=== PATIENT | female | born 1975 | race Caucasian/White ===

== ENCOUNTER 2019-11-29 21:26 | Emergency (ER) | payer MEDICAID, SELFPAY ==
[2019-11-29 21:42] VITALS: BP 147/90; PULSE 98; RESP 99; TEMP 37.4; O2SAT 99; BMI 25.0
--- NOTE | 2019-11-29 21:53 | CT_ITS ---
PROCEDURE: CT ABDOMEN PELVIS W CON CLINICAL INDICATION: RLQ pain Right lower quadrant pain with fever and diarrhea COMPARISON: No exams were available for comparison TECHNIQUE: IV Contrast: 75ML OPTIRAY 350 Oral Contrast None Axial images obtained with sagittal and coronal reformats. All CT scans at the facility use one or more dose reduction, viz: automated exposure control, ma/kV adjustment per patient size (including targeted exams where dose is matched to indication, i.e. head), or iterative reconstruction technique. FINDINGS: LOWER THORAX: No acute finding ABDOMEN & PELVIS: The liver, spleen, adrenal glands, pancreas, and kidneys have an unremarkable appearance. No intestinal obstruction or free air. No evidence of appendicitis. The uterus is enlarged with a isodense mass along the right aspect of the body of the uterus measuring 7 cm consistent with a fibroid. No abnormal fluid collections within the pelvis. No acute bony anomalies. IMPRESSION: 1. No acute finding. 2. Large uterine fibroid Dictated by: Rafal Bello MD 11/30/2019 08:52 Electronically signed by Rafal Blelo MD in [place] 11/30/2019 08:52
[2019-11-29 22:00] LABS: Microscopic, Urine URINE MICROSCOPIC (MICROSCOPIC)
[2019-11-29 22:05] LABS: Appearance,Urine CLEAR (Clear); Blood, Urine Negative (Negative); Color,Urine YELLOW (Yellow); Glucose,Urine (UA) Negative (Negative); Ketones,Urine Negative (Negative); Leukocyte Esterase,Urine Negative (Negative); Nitrate,Urine Negative (Negative); Protein,Urine Negative (Negative); Urobilinogen,Urine 0.2 EU/dl (0.2)
[2019-11-29 22:07] LABS: Urine Pregnancy, HCG Qual. Negative (Negative)
[2019-11-29 22:08] LABS: Bilirubin,Urine Negative (Negative)
[2019-11-29 22:19] LABS: Strep Scrn Group A (Rapid) Negative (Negative)
[2019-11-29 22:23] LABS: Basophils % 0.1 % (0.1-2.0); Eosinophils # 0.1 K/mm3 (0.0-0.4); Eosinophils % 1.3 % (0.1-12.0); Hematocrit 38.7 % (37.0-47.0); Hemoglobin 12.9 g/dL (12.2-16.2); Lymphocytes # 2.1 K/mm3 (0.7-4.5); Lymphocytes % 33.7 % (10-50); Mean Corpuscular HGB Conc 33.3 g/dL (31.8-35.4); Mean Corpuscular Hemoglobin 31.8 pg (27.0-31.2); Mean Corpuscular Volume 95.4 fl (81-99); Mean Platelet Volume 8.4 fl (7.4-10.4); Monocytes # 0.3 K/mm3 (0.1-1.0); Neutrophils # 3.8 K/mm3 (1.8-7.8); Neutrophils % 59.9 % (37.0-80.0); Platelet Count 223 K/mm3 (142-424); Red Blood Count 4.06 M/mm3 (4.20-5.40); Red Cell Distribution Width 13.2 % (11.5-17.5); White Blood Count 6.3 K/mm3 (4.8-10.8)
[2019-11-29 22:27] LABS: Chloride 104 mmol/L (98-107)
[2019-11-29 22:28] LABS: Potassium 3.5 mmoL/L (3.5-5.1); Sodium 137 mmol/L (136-145)
[2019-11-29 22:30] LABS: Alanine Aminotransferase 11 U/L (12-78); Alkaline Phosphatase 78 U/L (38-126); Amylase 64 U/L (30-110); Anion Gap 9.5 mEq/L (5-15); Aspartate Amino Transferase 21 U/L (14-36); Bilirubin,Total 0.3 mg/dl (0.2-1.3); Blood Urea Nitrogen 8 mg/dl (7-17); Carbon Dioxide 27 mmol/L (22.0-30.0); Creatinine Clearance Estimated 90 mL/min (50-200); Estimated Glomerular Filt Rate 79 ml/min (>60); GFR (African American) 95 ML/MIN (>60)
[2019-11-29 22:31] LABS: Albumin Level 4.1 g/dl (3.5-5.0); Albumin/Globulin Ratio 1.6 (1.1-1.8); Calcium 8.8 mg/dl (8.4-10.2); Globulin 2.6 g/dL (1.3-3.2); Glucose 92 mg/dl (74-100); Lipase 113 U/L (23-300); Total Protein,Serum 6.7 g/dl (6.3-8.2)
[2019-11-29 22:31] LABS: Bacteria,Urine Trace /lpf; WBC,Urine Occasional #/hpf (0-3)
--- NOTE | 2019-11-29 22:34 | HMH.EDNVD ---
ED Disposition Clinical Impression: Pharyngitis Qualifiers: Pharyngitis/tonsillitis etiology: unspecified etiology Qualified Code(s): J02.9 - Acute pharyngitis, unspecified Fibroid, uterine Qualifiers: Uterine leiomyoma location: unspecified location Qualified Code(s): D25.9 - Leiomyoma of uterus, unspecified Disposition: Home, Self-Care Condition on Discharge: Good Instructions: Sore Throat Additional Instructions: use meds and see pcp for follow up and await covid-19 testing , see online communications manager for fibroid Prescriptions: cephALEXin [Keflex 500mg Cap] 500 mg PO TID #30 cap Transmission Status: Pending to [facility] Referrals: Kentrell Rojas [Primary Care Provider] - Carlos Escamilla MD [Staff Physician] - - Critical Care Critical Care Time: No Attestation: On 11/29/19, the high probability of a clinically significant, sudden or life threatening deterioration of the following system(s) required my full and direct attention, intervention and personal management. The time I documented below is in addition to time spent performing reported procedures but includes the following listed in this critical care notation. Medical Decision Making - Medical Records Medical records reviewed: Yes: I reviewed the patient's medical records. - Charles Inquiry Pt receiving controlled substance: No Vital Signs: 11/29/19 21:42 11/29/19 22:44 Temperature 99.4 F Temperature Source Oral Pulse Rate [Left] 98 H 87 Respiratory Rate 99 H 18 Blood Pressure [Right Arm] 147/90 H 124/77 Blood Pressure Mean [Right Arm] 109 92 Blood Pressure Position [Right Arm] Supine 02 Sat by Pulse Oximetry 99 100 Oxygen Delivery Method Room Air Room Air - Lab Data Lab results reviewed: Yes: I reviewed the patient's lab results. Lab Results 11/29/19 21:40: Urine Color Yellow, Urine Appearance Clear, Urine pH 7.0, Ur Specific [place] 1.020, Urine Protein Negative, Urine Glucose (UA) Negative, Urine Ketones Negative, Urine Blood Negative, Urine Nitrate Negative, Urine Bilirubin Negative, Urine Urobilinogen 0.2, Ur Leukocyte Esterase Negative, Urine WBC Occasional, Ur Squamous Epith Cells 5-10, Urine Bacteria Trace 11/29/19 21:40: Urine HCG, Qual Negative 11/29/19 21:55: Group A Strep Rapid Negative 11/29/19 22:00: WBC 6.3, RBC 4.06 L, Hgb 12.9, Hct 38.7, MCV 95.4, MCH 31.8 H, MCHC 33.3, RDW 13.2, Plt Count 223, MPV 8.4, Neut % (Auto) 59.9, Lymph % (Auto) 33.7, Trigg % (Auto) 5.0, Eos % (Auto) 1.3, Baso % (Auto) 0.1, Neut # (Auto) 3.8, Lymph # (Auto) 2.1, Trigg # (Auto) 0.3, Eos # (Auto) 0.1, Baso # (Auto) 0.0 11/29/19 22:00: Sodium 137, Potassium 3.5, Chloride 104, Carbon Dioxide 27, Anion Gap 9.5, BUN 8, Creatinine 0.80, Estimated Creat Clear 90, Estimated GFR 79, Est GFR ( Amer) 95, Glucose 92, Calcium 8.8, Total Bilirubin 0.3, AST 21, ALT 11 L, Alkaline Phosphatase 78, C-Reactive Protein 0.9, Total Protein 6.7, Albumin 4.1, Globulin 2.6, Albumin/Globulin Ratio 1.6, Amylase 64, Lipase 113 Result diagrams: 11/29/19 22:00 11/29/19 22:00 Orders (Tests/Meds): ED MEDICATIONS Generic Name Dose Route Start Last Admin Trade Name Freq PRN Reason Stop Dose Admin Sodium Chloride 1,000 mls @ 999 mls/hr 11/29/19 22:00 11/29/19 22:17 Sod Chlor 0.9% 1000ml Bag IV 11/29/19 23:00 999 mls/hr .Q1H1M TY Administration Sodium Chloride 8 ml 11/29/19 21:53 Sodium Chloride 0.9% 10ml Vial IV 12/29/19 21:52 NEEDED PRN dilute pepcid Discontinued Medications Generic Name Dose Route Start Last Admin Trade Name Freq PRN Reason Stop Dose Admin Famotidine 20 mg 11/29/19 21:53 11/29/19 22:17 Pepcid 20mg/2ml Vial IV 11/29/19 21:54 20 mg ONCE ONE Administration Ioversol 75 ml 11/29/19 22:34 07/09/20 22:35 Rad-Optiray 350 100ml Vial IV 11/29/19 22:35 75 ml ONCE ONE Administration Protocol Ketorolac Tromethamine 30 mg 11/29/19 21:53 11/29/19 22:17 Toradol 30mg/Ml Vial IV 11/29/19 21:54 30 m
[2019-11-29 22:36] LABS: C-Reactive Protein 0.9 mg/L (0-4)
[2019-11-29 22:44] VITALS: BP 124/77; PULSE 87; RESP 18; O2SAT 100
[2019-11-29 23:20] LABS: Erythrocyte Sedimentation Rate 8 mm/hr (0-20)
[2019-11-29 23:27] VITALS: BP 126/88; PULSE 86; RESP 14; TEMP 36.9; O2SAT 98
[2019-12-01 14:52] LABS: Covid-19 Nasal PCR Sendout Lex Not Detected
== END 2019-11-29 23:30 | disposition home or self-care (01) ==
PROVIDERS: Emergency Provider Emergency Medicine; PCP Family Medicine
DX: J02.9 Acute pharyngitis, unspecified (principal); D25.9 Leiomyoma of uterus, unspecified
CPT/HCPCS: 74177; 80053; 81001; 81025; 82150; 83690; 85025; 85651; 86140; 87430; 96365; 96375; 99284; J2405; Q9967; U0004

== ENCOUNTER 2021-03-31 18:39 | Emergency (ER) | payer MEDICAID, SELFPAY ==
[2021-03-31 20:14] VITALS: BP 141/89; PULSE 91; RESP 22; TEMP 37.1; O2SAT 98; BMI 27.1
[2021-03-31 20:20] LABS: UTC Strep Screen (Rapid) Negative (Negative)
--- NOTE | 2021-03-31 21:00 | HMH.EDUTC ---
[facility] [place] [facility] [place] Clinical Impression: Impetigo Disposition: Home, Self-Care Condition on Discharge: Good Instructions: DI for Impetigo, Impetigo, Cephalexin Additional Instructions: Clean area with antibacterial soap and water Gargle warm salt water to help with throat pain Apply medication to sores on chin as prescribed Oral antibiotics as prescribed Return if needed Straight to ER if any life threatening symptoms Prescriptions: Mupirocin [Bactroban 2% Ointment 22gm tube] 1 applicatio TP TID 5 Days #22 gm Transmission Status: Pending to [facility] cephALEXin [cephALEXin 500mg capsule*] 500 mg PO Q6H 10 Days #40 cap Transmission Status: Pending to [facility] Referrals: Oleg De La Rosa APRN [Primary Care Provider] - As needed Time of Disposition: 21:13 Medical Decision Making - Charles Inquiry Pt receiving controlled substance: No Charles was queried for this patient: No Vital Signs: 03/31/21 20:14 Temperature 98.8 F Temperature Source Oral Pulse Rate [Left Radial] 91 H Respiratory Rate 22 Blood Pressure [Right Arm] 141/89 H Blood Pressure Mean [Right Arm] 106 Blood Pressure Source [Right Arm] Automatic Cuff Blood Pressure Position [Right Arm] Sitting 02 Sat by Pulse Oximetry 98 Oxygen Delivery Method Room Air - Lab Data Lab results reviewed: Yes: I reviewed the patient's lab results. Lab Results 03/31/21 20:14: Strep Scn Rapid Clinic Negative Orders (Tests/Meds): ORDERS Category Date Time Status Strep Screen Confirmation Stat Micro 03/31/21 20:14 Received [facility] [place] [facility] [place] HPI - General Stated complaint: sores in mouth and throat Time Seen by Provider: 03/31/21 21:00 Mode of Arrival: Ambulatory Source of Information: Patient Limitations: No Limitations Description of Symptoms (Recalled from Triage Doc. by RN): throat sore, sore in mouth and chin HEENT Symptoms (Recalled from RN notes): Yes Resp Symptoms (Recalled from RN notes): No Skin Symptoms (Recalled from RN notes): No MS Symptoms (Recalled from RN notes): No Functional Status (Recalled from RN notes): na - History of Present Illness Provider Complaint: Patient states that she has been having sore throat her mouth felt sore then she started having sore like lesions on her chin and they are spreading on her face States that this evening she was still feeling bad and sores on chin looked yellowish so she came in - Related Data Previous Rx's Medication Instructions Recorded cephALEXin [Keflex 500mg Cap] 500 mg PO TID #30 cap 11/29/19 Mupirocin [Bactroban 2% Ointment 1 applicatio TP TID 5 Days #22 gm 03/31/21 22gm tube] cephALEXin [cephALEXin 500mg 500 mg PO Q6H 10 Days #40 cap 03/31/21 capsule*] Allergies Allergy/AdvReac Type Severity Reaction Status Date / Time adhesive Allergy Verified 11/29/19 21:52 coconut Allergy Verified 11/29/19 21:52 latex Allergy Verified 11/29/19 21:52 - Worker's Comp Is this a Worker's Comp case?: No [facility] History - Hepatitis A Screen Drug use history?: No High risk sexual behaviors?: No History of sexually transmitted infection?: No Currently employed?: No Childcare worker?: No Do you have indoor plumbing?: Yes Do you have electricity?: Yes Attestation statement:: This patient has been screened for Hepatitis A risk factors. I have reviewed the patient's past medical history: Yes Medical History: Denies:: Diabetes Mellitus Type 1, Diabetes Mellitus Type 2 - Social History Smoking Status: Former smoker Alcohol Intake: never Occupational Status: employed ROS Obtained: Yes All systems reviewed & no additional complaints, Yes Systems reviewed as appropriate & no additional complaints Physical Exam - General General appearance: alert, in no apparent distress - Expanded Head Exam 1 - multiple lesions with dry honey colored crusting like that commonly seen with i
[2021-03-31 21:19] VITALS: BP 141/89; PULSE 91; RESP 22; TEMP 37.1; O2SAT 98
== END 2021-03-31 21:30 | disposition home or self-care (01) ==
PROVIDERS: Emergency Provider Nurse Practitioner; PCP Nurse Practitioner
DX: L01.00 Impetigo, unspecified (principal); J02.9 Acute pharyngitis, unspecified
CPT/HCPCS: 87880; 99202; G0463